=== PATIENT | male | born 1970 | race Caucasian/White ===

== ENCOUNTER 2017-03-02 20:48 | Emergency (ER) | payer SELFPAY ==
[~2017-03-02] VITALS: Ht 175.2 cm; Wt 93.0 kg
[~2017-03-02 20:48] MED LIST: IBU-8800 MG PO; NORCO 5-325 TA1 EACH PO; SOMA350 MG PO
== END 2017-03-02 23:16 | disposition home or self-care (01) ==
LOC: ED 20:48
DX: M87.852 Other osteonecrosis, left femur (principal); W18.39XA Other fall on same level, initial encounter; Y93.89 Activity, other specified; Y92.89 Other specified places as the place of occurrence of the external cause; Y99.8 Other external cause status

== ENCOUNTER 2019-02-18 17:46 | Inpatient (IN) | payer OTHER ==
[~2019-02-18] VITALS: Ht 180.3 cm; Wt 68.2 kg
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
[2019-02-18 17:47] VITALS: BP 132/101
--- NOTE | 2019-02-18 17:52 | NUR ---
PT AT SINK IN ROOM NOW WASHING FACE AND ARMS
[2019-02-18 18:34] LABS: BASO # 0.1 10*3/uL (0.0-0.1); BASO % 1.3 % (0.0-1.0); EOS # 0.2 10*3/uL (0.0-0.4); EOS % 3.3 % (1.0-4.0); HEMATOCRIT 41.9 % (42.0-52.0); HEMOGLOBIN 14.2 g/dl (14.0-18.0); LYMPH # 1.7 10*3/uL (1.3-4.4); LYMPH % 27.1 % (27.0-41.0); MEAN CELL VOLUME 98.6 fl (80.0-94.0); MEAN CORPUSCULAR HGB 33.4 pg (27.0-31.0); MEAN CORPUSCULAR HGB CONC 33.9 g/dl (33.0-37.0); MEAN PLATELET VOLUME 9.1 fl (9.6-12.3); MONO # 0.5 10*3/uL (0.1-1.0); MONO % 8.3 % (3.0-9.0); NEUT # 3.7 10*3/uL (2.3-7.9); NEUT % 59.8 % (47.0-73.0); PLATELET COUNT AUTOMATED 264 10*3/uL (130-400); RED BLOOD COUNT 4.25 10*6/uL (4.50-5.90); RED CELL DISTRI WIDTH 13.2 % (0-14.5); WHITE BLOOD COUNT 6.1 10*3/uL (4.8-10.8)
[2019-02-18 18:49] LABS: ALBUMIN 3.8 gm/dl (3.1-4.5); ALKALINE PHOSPHATASE 29 U/L (45-117); BUN 8 mg/dl (7-24); CHLORIDE 102 mmol/L (98-107); CREATININE 0.84 mg/dL (0.70-1.30); POTASSIUM 4.2 mmol/L (3.5-5.1); SGOT/AST 70 IU/L (3-35); SGPT/ALT 45 U/L (12-78); SODIUM 136 mmol/L (136-145); TOTAL PROTEIN 8.2 gm/dL (6.4-8.2)
--- NOTE | 2019-02-18 18:54 | NUR ---
ETOH 359 DR FULTON NOTIFIED
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
--- NOTE | 2019-02-18 19:47 | NUR ---
PT AMBULATING AROUND ROOM, USING PHONE.
[2019-02-18 20:20] VITALS: BP 150/80
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
--- NOTE | 2019-02-18 20:46 | NUR ---
Neurological: awake,alert,oriented: pleasant and cooperative Respiratory: easy, regular,no distress: room air, denies dyspnea Breath sounds: clear t/o all lung kiran Cough: none per assessment/patient Cardiovascular: no problem: HRR, denies cp/pressure, no edema, PP+ Gastrointestinal: Normoactive x4 quads, denies N/V/D/C, abd soft/nt/nd last bm 02/18 Genito/Urinary: no problem: denies dysuria Musculoskeketal: AMBULATORY w/ assist for now Multiple wounds: Lacerations to top and bottom lip, multiple scabbed areas to body, abrasions to head and scars to legs. Refusing measurements and pictures. SIENNA VILLANUEVA A
[2019-02-19] VITALS: BP 129/74
--- NOTE | 2019-02-19 07:26 | NUR ---
Shift chart check completed.
[2019-02-19 08:00] VITALS: BP 152/60
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
== END 2019-02-19 09:09 | disposition home or self-care (01) | DRG 155 ==
LOC: ED 17:46 → 5E 19:39 → EDHOLD 19:39 → 5E 20:06
PROVIDERS: Emergency Medicine; ADMIT Internal Medicine
DX: S02.2XXA Fracture of nasal bones, initial encounter for closed fracture (principal); S02.401A Maxillary fracture, unspecified side, initial encounter for closed fracture; S00.03XA Contusion of scalp, initial encounter; Y04.0XXA Assault by unarmed brawl or fight, initial encounter; F10.229 Alcohol dependence with intoxication, unspecified; R74.0 Nonspecific elevation of levels of transaminase and lactic acid dehydrogenase [LDH]; Y93.89 Activity, other specified; Y92.89 Other specified places as the place of occurrence of the external cause; Y99.8 Other external cause status; Z71.41 Alcohol abuse counseling and surveillance of alcoholic

== ENCOUNTER 2019-10-31 00:18 | Emergency (ER) | payer OTHER ==
[~2019-10-31] VITALS: Ht 182.8 cm; Wt 63.5 kg
[2019-10-31 01:10] LABS: BASO % 0.7 % (0.0-1.0); EOS # 0.1 10*3/uL (0.0-0.4); EOS % 1.9 % (1.0-4.0); HEMATOCRIT 43.1 % (42.0-52.0); LYMPH # 1.7 10*3/uL (1.3-4.4); LYMPH % 39.9 % (27.0-41.0); MEAN CELL VOLUME 95.8 fl (80.0-94.0); MEAN CORPUSCULAR HGB 32.9 pg (27.0-31.0); MEAN CORPUSCULAR HGB CONC 34.3 g/dl (33.0-37.0); MONO # 0.4 10*3/uL (0.1-1.0); MONO % 8.4 % (3.0-9.0); NEUT # 2.1 10*3/uL (2.3-7.9); NEUT % 48.9 % (47.0-73.0); PLATELET COUNT AUTOMATED 216 10*3/uL (130-400); RED CELL DISTRI WIDTH 12.7 % (0-14.5); WHITE BLOOD COUNT 4.2 10*3/uL (4.8-10.8)
[2019-10-31 01:26] LABS: ALBUMIN 3.2 gm/dl (3.1-4.5); ALKALINE PHOSPHATASE 33 U/L (45-117); BUN 3 mg/dl (7-24); CHLORIDE 104 mmol/L (98-107); CREATININE 0.61 mg/dL (0.70-1.30); LIPASE 204 U/L (73-393); POTASSIUM 3.8 mmol/L (3.5-5.1); SGOT/AST 48 IU/L (3-35); SGPT/ALT 30 U/L (12-78); SODIUM 133 mmol/L (136-145); TOTAL PROTEIN 7.2 gm/dL (6.4-8.2)
[2019-10-31 02:28] LABS: BILIRUBIN NEGATIVE (NEGATIVE); BLOOD 1+ (NEGATIVE); CLARITY CLEAR (CLEAR); COLOR STRAW (YELLOW); GLUCOSE NEGATIVE (NEGATIVE); KETONE NEGATIVE (NEGATIVE); LEUKO ESTERASE NEGATIVE (NEGATIVE); NITRITE NEGATIVE (NEGATIVE); PH 5.5 (5.0-9.0); SPECIFIC GRAVITY 1.005 (1.005-1.030); UROBILINOGEN 0.2 E.U./dl (0.2-1.0)
[2019-10-31 02:34] LABS: BACTERIA 1+
[2019-10-31 02:35] LABS: URINE AMPHETAMINES < 1000 (1000ng/ml); URINE BARBITURATES < 200 (200ng/ml); URINE BENZODIAZEPINES < 200 (200ng/ml); URINE CANNABINOIDS (THC) < 50 (50ng/ml); URINE COCAINE < 300 (300ng/ml); URINE METHADONE < 300 (300ng/ml); URINE OPIATES < 300 (300ng/ml)
[2019-10-31 02:41] LABS: URINE PHENCYCLIDINE < 25 (25ng/ml)
== END 2019-10-31 02:00 | disposition short-term general hospital (02) ==
LOC: ED 00:18
PROVIDERS: Emergency Medicine
DX: S06.5X9A Traumatic subdural hemorrhage with loss of consciousness of unspecified duration, initial encounter (principal); F10.129 Alcohol abuse with intoxication, unspecified; R22.2 Localized swelling, mass and lump, trunk; F17.200 Nicotine dependence, unspecified, uncomplicated; W10.8XXA Fall (on) (from) other stairs and steps, initial encounter; Y93.89 Activity, other specified; Y92.89 Other specified places as the place of occurrence of the external cause; Y90.8 Blood alcohol level of 240 mg/100 ml or more

== ENCOUNTER 2020-01-20 16:56 | Emergency (ER) | payer OTHER ==
[~2020-01-20] VITALS: Ht 182.8 cm; Wt 70.3 kg
[2020-01-20 17:54] LABS: BASO % 0.4 % (0.0-1.0); EOS % 0.3 % (1.0-4.0); HEMATOCRIT 49.1 % (42.0-52.0); LYMPH # 0.8 10*3/uL (1.3-4.4); LYMPH % 11.9 % (27.0-41.0); MEAN CELL VOLUME 98.8 fl (80.0-94.0); MEAN CORPUSCULAR HGB 32.8 pg (27.0-31.0); MEAN CORPUSCULAR HGB CONC 33.2 g/dl (33.0-37.0); MEAN PLATELET VOLUME 8.2 fl (9.6-12.3); MONO # 0.5 10*3/uL (0.1-1.0); MONO % 7.2 % (3.0-9.0); NEUT # 5.5 10*3/uL (2.3-7.9); NEUT % 79.6 % (47.0-73.0); PLATELET COUNT AUTOMATED 255 10*3/uL (130-400); RED BLOOD COUNT 4.97 10*6/uL (4.50-5.90); RED CELL DISTRI WIDTH 13.3 % (0-14.5)
[2020-01-20 18:24] LABS: ALBUMIN 3.1 gm/dl (3.1-4.5); ALKALINE PHOSPHATASE 45 U/L (45-117); BUN 7 mg/dl (7-24); CHLORIDE 105 mmol/L (98-107); CREATININE 0.82 mg/dL (0.70-1.30); POTASSIUM 3.4 mmol/L (3.5-5.1); SGOT/AST 43 IU/L (3-35); SGPT/ALT 22 U/L (12-78); SODIUM 136 mmol/L (136-145)
[2020-01-20] MEDS ORDERED: Motrin,Rufen800 MG PO (19:30)
[2020-01-20] MEDS ORDERED: NORCO 5-325 TA1 EACH PO (19:30)
== END 2020-01-20 20:04 | disposition home or self-care (01) ==
LOC: ED 16:56
PROVIDERS: Emergency Medicine
DX: S22.42XA Multiple fractures of ribs, left side, initial encounter for closed fracture (principal); F10.920 Alcohol use, unspecified with intoxication, uncomplicated; F17.200 Nicotine dependence, unspecified, uncomplicated; Y90.9 Presence of alcohol in blood, level not specified; W10.8XXA Fall (on) (from) other stairs and steps, initial encounter; Y93.89 Activity, other specified; Y92.89 Other specified places as the place of occurrence of the external cause; Y99.8 Other external cause status

== ENCOUNTER 2020-03-08 10:06 | Inpatient (IN) | payer OTHER ==
[~2020-03-08] VITALS: Ht 182.9 cm; Wt 58.2 kg
[~2020-03-08 10:06] MED LIST changes: +Motrin,Rufen800 MG PO
[2020-03-08 10:19] VITALS: BP 116/66
[2020-03-08 10:36] LABS: BASO % 0.3 % (0.0-1.0); EOS % 0.2 % (1.0-4.0); HEMATOCRIT 36.5 % (42.0-52.0); LYMPH # 0.7 10*3/uL (1.3-4.4); LYMPH % 5.6 % (27.0-41.0); MEAN CELL VOLUME 93.4 fl (80.0-94.0); MEAN CORPUSCULAR HGB 31.5 pg (27.0-31.0); MEAN CORPUSCULAR HGB CONC 33.7 g/dl (33.0-37.0); MEAN PLATELET VOLUME 9.3 fl (9.6-12.3); MONO # 0.9 10*3/uL (0.1-1.0); MONO % 7.4 % (3.0-9.0); NEUT # 10.8 10*3/uL (2.3-7.9); NEUT % 85.6 % (47.0-73.0); PLATELET COUNT AUTOMATED 300 10*3/uL (130-400); RED BLOOD COUNT 3.91 10*6/uL (4.50-5.90); RED CELL DISTRI WIDTH 13.1 % (0-14.5); WHITE BLOOD COUNT 12.6 10*3/uL (4.8-10.8)
[2020-03-08 10:50] LABS: ALBUMIN 2.1 gm/dl (3.1-4.5); ALKALINE PHOSPHATASE 72 U/L (45-117); BUN 16 mg/dl (7-24); CHLORIDE 93 mmol/L (98-107); CREATININE 0.49 mg/dL (0.70-1.30); POTASSIUM 4.7 mmol/L (3.5-5.1); SGOT/AST 97 IU/L (3-35); SGPT/ALT 36 U/L (12-78); SODIUM 129 mmol/L (136-145); TOTAL PROTEIN 7.2 gm/dL (6.4-8.2)
[2020-03-08 10:53] LABS: ACT PARTIAL THROMBO TIME 40.9 SECONDS (20.0-32.1); INTERNATIONAL NORM RATIO 1.9 (2.0-3.5)
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
[2020-03-08 12:06] VITALS: BP 130/88
[2020-03-08] MEDS ORDERED: OXYCODONE HYDRO15 MG PO (13:37)
[2020-03-08] MEDS ORDERED: NICODERM CQ1 EAC2 T (13:38)
[2020-03-08] MEDS ORDERED: Lopressor25 MG PO (13:38)
[2020-03-08] MEDS ORDERED: POTASSIUM CHLO20 ME3 PO (13:39)
--- NOTE | 2020-03-08 14:13 | NUR ---
PATIENT C/O BACK AND CHEST PAIN UNABL;E TO RATE OR DESCRIBE MEDICATED WITH MORPHINE ORDERED PRN
[2020-03-08 15:01] LABS: URINE AMPHETAMINES < 1000 (1000ng/ml); URINE BARBITURATES < 200 (200ng/ml); URINE BENZODIAZEPINES < 200 (200ng/ml); URINE CANNABINOIDS (THC) < 50 (50ng/ml); URINE COCAINE < 300 (300ng/ml); URINE METHADONE < 300 (300ng/ml); URINE OPIATES > 300 (300ng/ml)
[2020-03-08 15:05] LABS: URINE PHENCYCLIDINE < 25 (25ng/ml)
--- NOTE | 2020-03-08 15:06 | NUR ---
PATIENT REPORTS PAIN IS IMPROVED SINCE BEING GIVEN MORPHINE.
[2020-03-08 15:31] LABS: BILIRUBIN NEGATIVE; CLARITY CLEAR (CLEAR); COLOR YELLOW (YELLOW); GLUCOSE NEGATIVE
[2020-03-08 15:32] LABS: BLOOD NEGATIVE (NEGATIVE); KETONE 1+; LEUKO ESTERASE NEGATIVE (NEGATIVE); NITRITE NEGATIVE (NEGATIVE)
--- NOTE | 2020-03-08 15:32 | NUR ---
CALL MPLACED TO DR. SHELBY, SPOKE WITH MARTINA AT OFFICE ADVISED OF CONSULT.
[2020-03-08 15:47] LABS: BACTERIA TRACE; FINE GRANULAR CAST 31-40; MUCOUS TRACE
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
[2020-03-08 16:00] VITALS: BP 99/73
[2020-03-08 16:21] LABS: ALKALINE PHOSPHATASE 67 U/L (45-117); BUN 14 mg/dl (7-24); CHLORIDE 96 mmol/L (98-107); POTASSIUM 4.4 mmol/L (3.5-5.1); SGOT/AST 91 IU/L (3-35); SGPT/ALT 37 U/L (12-78); SODIUM 129 mmol/L (136-145); TOTAL PROTEIN 6.9 gm/dL (6.4-8.2)
--- NOTE | 2020-03-08 17:45 | NUR ---
CALL PLACED TO DR. PETTIT, ADVISED OF [facility] OF [facility], HE VERSED HE WAS AWARE, HE REQUESTED THAT NS AND MVI RUN AT SAME TIME, I ADVISED PATIENT WOULD NEED 2ND IV, AND WHEN DR. SHELBY WAS IN HE VERSED THAT PATIENT SHOULD NOT RECEIVE TO MUCH FLUIDS, I ADVISED DR. PETTIT, HE VERSED JUST INCREASE MVI TO 250CC/HR AND THEN CONTINUE WITH THE NS WHEN THAT IS COMPLETED.
--- NOTE | 2020-03-08 19:30 | NUR ---
PATIENT MOVED FROM 401 CLOSER TO THE DESK INTO 409. PATIENT VERY RESTLESS, LABORED BREATHING. 2L NC ON. HR 130S. RESPIRATIONS IN THE 30S. USING ACCESSORY MUSCLES TO BREATHE. PATIENT ALERT TO SELF. MUMBLED SPEECH. VERY HARD TO UNDERSTAND. PROCESS DEVELOPMENT CHEMIST NOTIFIED OF ROOM CHANGE.
[2020-03-08 20:00] VITALS: BP 130/82
[2020-03-08 20:20] LABS: ALKALINE PHOSPHATASE 67 U/L (45-117); BUN 14 mg/dl (7-24); CHLORIDE 98 mmol/L (98-107); CREATININE 0.53 mg/dL (0.70-1.30); SGOT/AST 87 IU/L (3-35); SGPT/ALT 34 U/L (12-78); SODIUM 128 mmol/L (136-145); TOTAL PROTEIN 6.8 gm/dL (6.4-8.2)
--- NOTE | 2020-03-08 20:29 | NUR ---
DR. FLETCHER NOTIFIED OF CRITICAL [facility] 13.6. NO NEW ORDERS GIVEN.
--- NOTE | 2020-03-08 21:52 | NUR ---
PATIENT VERY ANXIOUS AND RESTLESS. MEDICATED WITH ATIVAN AT THIS TIME. WILL CHCEK EFFECTIVENESS.
--- NOTE | 2020-03-08 23:33 | NUR ---
ATIVAN NOT EFFECTIVE. MORPHINE GIVEN AT THIS TIME. WILL CHECK EFFECTIVENESS.
--- NOTE | 2020-03-08 23:47 | NUR ---
PATIENTS OLDER BROTHER CALLED IN TO RECEIVE AN UPDATE ON PATIENT. ASKED PATIENT IF IT WAS OKAY TO GIVE HIS BROTHER INFORMATION. PATIENT STATED IT WAS OKAY TO SPEAK WITH HIS BROTHER. WITNESSED BY GEORGE WILKINS. UPDATE GIVEN TO BROTHER.
--- NOTE | 2020-03-08 23:52 | NUR ---
NOTIFIED DR. FLETCHER OF PATIENTS HR MAINTAINING IN THE 130S AFTER RECEIVING BOTH ATIVAN FOR AGIATION AND MORPHINE FOR PAIN. PER DR. FLETCHER HE WOULD LOOK INTO IT.
[2020-03-09] VITALS: BP 136/70
--- NOTE | 2020-03-09 00:30 | NUR ---
PATIENT REMAINS RESTLESS, HR IN THE 130S. PER DR. JEONG HE WILL ORDER A DOSE OF ATIVAN.
--- NOTE | 2020-03-09 01:26 | NUR ---
ONE TIME DOSE OF ATIVAN GIVEN AT THIS TIME. WILL CHECK EFFECTIVENSS.
--- NOTE | 2020-03-09 01:36 | NUR ---
DR. ROQUE CALLED REGARDING PATIENT CONDITION. RESPIRATIONS IN THE 40S. PULSE OX 88% ON 2L. INCREASED TO 5L NC. NOW 95-96%.
[2020-03-09 01:47] LABS: ARTERIAL BLOOD GAS PH 7.366 (7.35-7.45)
[2020-03-09 02:01] LABS: BASO # 0.1 10*3/uL (0.0-0.1); BASO % 0.4 % (0.0-1.0); EOS # 0.1 10*3/uL (0.0-0.4); EOS % 0.4 % (1.0-4.0); HEMATOCRIT 34.5 % (42.0-52.0); LYMPH # 0.6 10*3/uL (1.3-4.4); LYMPH % 5.3 % (27.0-41.0); MEAN CELL VOLUME 95.8 fl (80.0-94.0); MEAN CORPUSCULAR HGB 31.9 pg (27.0-31.0); MEAN CORPUSCULAR HGB CONC 33.3 g/dl (33.0-37.0); MEAN PLATELET VOLUME 9.2 fl (9.6-12.3); MONO # 0.8 10*3/uL (0.1-1.0); MONO % 6.8 % (3.0-9.0); NEUT # 9.5 10*3/uL (2.3-7.9); NEUT % 85.9 % (47.0-73.0); PLATELET COUNT AUTOMATED 278 10*3/uL (130-400); RED CELL DISTRI WIDTH 13.4 % (0-14.5); WHITE BLOOD COUNT 11.1 10*3/uL (4.8-10.8)
--- NOTE | 2020-03-09 02:29 | NUR ---
PER DR. ROQUE HOLD IV FLUIDS FOR NOW. IV LOPRESSOR GIVEN. BP 120/88 HR IN THE 130S. WILL CHECK EFFECTIVENESS.
--- NOTE | 2020-03-09 02:38 | NUR ---
NOTIFIED DR. WEATHERS OF NEW CONSULT. UPDATED HIM ON PATIENTS CONDITION. DR. WEATHERS OKAY WITH PATIENT ON BIPAP FOR NOW. NO OTHER ORDERS RECEIVED. WILL CONTINUE TO MONITOR.
--- NOTE | 2020-03-09 02:41 | NUR ---
NOTIFIED DR. ROQUE THAT DR. WEATHERS WAS NOTIFIED OF CONSULT. NOTIFIED HER PATIENT XRAY IS SHOWING PNEUMONIA AND NO IV ANTIBIOTICS HAVE BEEN GIVEN. STATED SHE WOULD ORDER ANTIBIOTICS. NOTIFIED DR. ROQUE OF PATIENTS HR NOW. HR IN 100S AFTER LOPRESSOR GIVEN. NO OTHER ORDERS RECEIVED. WILL CONTINUE TO MONITOR.
[2020-03-09 03:07] VITALS: BP 121/85
--- NOTE | 2020-03-09 03:35 | NUR ---
NOTIFIED DR. ROQUE THERES NO IMPROVEMENT IN PATIENTS CONDITION. HR NOW IN THE 118S. RESPIRATIONS IN THE 30S. PATIENT BELLY BREATHING AND USING ACCESSORY MUSLCES WHILE ON BIPAP. PER DR. ROQUE ORDER ANOTHER ABG.
--- NOTE | 2020-03-09 03:35 | NUR ---
NOTIFIED DR. ROQUE THERE IS NO IMPROVEMENT IN PATIENTS CONDITION. HR NOW IN THE 120'S, RESPIRATIONS 36. PATIENT BELLY BREATHING AND USING ACCESSORY MUSCLES WHILE ON BIPAP. PER DOCTOR MYA ORDER ANOTHER ABG.
[2020-03-09 04:01] LABS: ABG BASE EXCESS 4.7 mmol/L (-2.0-2.0); ARTERIAL BLOOD GAS PH 7.447 (7.35-7.45)
--- NOTE | 2020-03-09 04:06 | NUR ---
NOTIFIED DR. GALAN OF [facility], DR. GALAN TO GO [place].
--- NOTE | 2020-03-09 04:20 | NUR ---
DR ROQUE CALLED BACK. STATED SHE SPOKE WITH BOTH DR. WEATHERS AND DR. SAWYER. PER BOTH DOCTORS NO INTUBATION. GIVEN IV LASIX, SOLU MEDROL, AND DILAUDID. WILL CONTINUE TO MONITOR.
--- NOTE | 2020-03-09 04:30 | NUR ---
DR. MYA VALDOVINOS WITH INSERTING CALIX FOR ACCURATE I&OS.
--- NOTE | 2020-03-09 04:45 | NUR ---
CALIX INSERTED AT THIS TIME. 300CC STRAW COLORED URINE OUT.
[2020-03-09 05:00] VITALS: BP 134/93
--- NOTE | 2020-03-09 05:00 | NUR ---
NEW IV STARTED IN LAC.
--- NOTE | 2020-03-09 05:30 | NUR ---
DR. ROQUE ON FLOOR TO SEE PATIENT.
[2020-03-09 06:28] LABS: BUN 12 mg/dl (7-24); CHLORIDE 99 mmol/L (98-107); CREATININE 0.47 mg/dL (0.70-1.30); POTASSIUM 3.5 mmol/L (3.5-5.1); SGOT/AST 98 IU/L (3-35); SGPT/ALT 40 U/L (12-78); SODIUM 135 mmol/L (136-145); TOTAL PROTEIN 6.9 gm/dL (6.4-8.2)
[2020-03-09 06:35] LABS: ALKALINE PHOSPHATASE 71 U/L (45-117); FREE T4 1.06 ng/dl (0.76-1.46)
--- NOTE | 2020-03-09 06:46 | NUR ---
PATIENT ASLEEP, BUT AROUSABLE. HR IN THE 110'S. RESPIRATIONS 25 PER MINUTE. PULSE OX 97% ,ON BIPAP 30%FIO2. PATIENT CONTINUES TO HAVE LABORED BREATHING. BED IN LOWEST POSITION,CALL LIGHT WITHIN REACH. BED ALARM ON.
--- NOTE | 2020-03-09 06:49 | NUR ---
NOTIFIED DR. ROQUE OF CRITICAL CALCIUM. NO NEW ORDERS RECEIVED. WILL CONTINUE TO [id number]
--- NOTE | 2020-03-09 07:00 | NUR ---
ARRIVED ON SHIFT, BED IN LOW POSITION, WHEEL LOCKS ENGAGED, SIDE RAILS UP X 4, FOR PATIENT SAFETY, HE IS CURRENTLY ON BIPAP, USING ACCESSORY MUSCLES TO BREATHE, ORIENTED TO SELF ONLY, REINFORCED CALL LIGHT USE, BED ALARM ON, NO APPARENT NEEDS AT THIS TIME, WHITE BOARD UPDATED.
[2020-03-09 07:21] LABS: VITAMIN D, 25-HYDROXY 16.1 ng/mL (30-100)
--- NOTE | 2020-03-09 07:55 | NUR ---
Shift chart check completed.
[2020-03-09 08:00] VITALS: BP 111/82
--- NOTE | 2020-03-09 08:57 | NUR ---
Insurance Adviser in to talk to patient. Patient states lives at home with girlfriend. There are 0 steps in the home. [facility] Home health services: none Patient's level of ADLs: MINIMAL ASSIST Patient has working utilities: yes DME: none Follow-up physician's appointment after d/c: hospitalist nurse director Does patient want to access PORTAL?: no Discharge plan In to see patient to discuss discharge plans; he states he lives at home with his girlfriend and she helps him if needs arise. Discussed home health services and he declines at this time. When stable patient will discharge to home with girlfriend. JOHNNY ROSADO
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
--- NOTE | 2020-03-09 10:00 | NUR ---
PATENT RESTING QUIETLY WITH EYES CLOSED, CONTINUES WITH ACCESSORY MUSCLE USE TO BREATHE, FACIAL EXPRESSION RELAXED.
--- NOTE | 2020-03-09 11:00 | NUR ---
CALL PLACED TO [facility] SPOKE WITH LINNEA RN, NURSE TO NURSE GIVEN, REQUESTED CALIX CATHETER AND IV'S BE LEFT IN PLACE.
--- NOTE | 2020-03-09 11:25 | NUR ---
DR. WEATHERS IN TO SEE PATIENT, ADVISED PATIENT IS GOING TO [place], HE ASKED THAT I CALL PATIENTS GIRLFRIEND AND GET INFORMATION TO WHAT HAPPENED AFTER PATIENT WENT HOME PREVIOUSLY, SPOKE WITH JEANNE, SHE VERSED NOTHING HAPPENED ONE HE CAME HOME, SHE DID GIVE PATIENTS MOTHERS PHONE NUMBER, CHARLINE LAWS [phone]. CALL PLACED TO HIS MOTHER SHE WAS AWARE PATIENT HAD LUNG CANCER, SHE VERSED SHE ATTEMPTED TO CALL PATIENT MANY TIMES BUT NEVER GOT CALL BACK. SHE WOULD LIKE CALL FROM DR. SPOKE WITH DR. SAWYER AND GAVE HIM HER PHONE NUMBER. [employer]ODUCTION SUPERVISOR WAS SETTING UP TRANSFER, KIERRAJACKSON WANTED TO KNOW IF PATIENT COULD GO ON CPAP OR O2, DR. WEATHERS VERSED SEE HOW HE DOES ON O2 IF LEVELS > 92 OK IF HE GOES ON 5 LITERS O2, PATIENTS BIPAP REMOVED AND HE WAS PLACED ON 5 LITERS, O2 SATS MAINTAINING AT 98% ON 5 LITERS.
--- NOTE | 2020-03-09 12:15 | NUR ---
Discharge instructions reviewed with patient/family. Patient receptive and verbalizes understanding. Follow-up care arranged. Written instructions given to patient/family, SEE PRIOR NOTES, IVS LEFT IN PLACE IN RIGHT AND LEFT AC, CALIX CATHETER LEFT IN PLACE PER LINNEA AT [facility], MONITORED REMOVED, PATIENT LEFT VIA [facility]. DORIS HERZOG
== END 2020-03-09 12:48 | disposition short-term general hospital (02) | DRG 425 ==
LOC: ED 10:06 → EDHOLD 11:27 → 4E 11:51
PROVIDERS: Emergency Medicine; Internal Medicine; ADMIT Internal Medicine; ATTEND Internal Medicine
PROC: 5A09357 Assistance with Respiratory Ventilation, Less than 24 Consecutive Hours, Continuous Positive Airway Pressure (ICD-10-PCS; principal; 2020-03-09)
DX: E83.52 Hypercalcemia (principal); E87.8 Other disorders of electrolyte and fluid balance, not elsewhere classified; R65.11 Systemic inflammatory response syndrome (SIRS) of non-infectious origin with acute organ dysfunction; E22.2 Syndrome of inappropriate secretion of antidiuretic hormone; R74.0 Nonspecific elevation of levels of transaminase and lactic acid dehydrogenase [LDH]; J96.01 Acute respiratory failure with hypoxia; G93.41 Metabolic encephalopathy; E43 Unspecified severe protein-calorie malnutrition; J45.40 Moderate persistent asthma, uncomplicated; J98.11 Atelectasis; C34.91 Malignant neoplasm of unspecified part of right bronchus or lung; J44.9 Chronic obstructive pulmonary disease, unspecified; G98.8 Other disorders of nervous system; I10 Essential (primary) hypertension; F17.210 Nicotine dependence, cigarettes, uncomplicated; F10.10 Alcohol abuse, uncomplicated; G89.29 Other chronic pain; T42.4X5A Adverse effect of benzodiazepines, initial encounter; T40.2X5A Adverse effect of other opioids, initial encounter; Y92.89 Other specified places as the place of occurrence of the external cause; Z87.01 Personal history of pneumonia (recurrent); Z80.0 Family history of malignant neoplasm of digestive organs; Z87.19 Personal history of other diseases of the digestive system; Z92.3 Personal history of irradiation; Z68.1 Body mass index [BMI] 19.9 or less, adult